=== PATIENT | male | born 1990 | race Caucasian/White ===

== ENCOUNTER 2016-07-14 14:14 | Emergency (ER) | payer MEDICAID, OTHER ==
[~2016-07-14] VITALS: Ht 170.2 cm; Wt 62.0 kg
[2016-07-14 14:17] VITALS: Ht 170.2 cm; Wt 62.0 kg
[2016-07-14] MEDS ORDERED: SODIUM CHLORIDE 0.9% 1L IRRIG IRR STA (14:52)
[2016-07-14] MEDS ORDERED: FLUORESCEIN STRIP LEFT EYE ONE (15:00)
[2016-07-14] MEDS ORDERED: TETRACAINE 0.5% 4 ML OPH LEFT EYE ONE (15:00)
[2016-07-14] MEDS ORDERED: IBUP-1542 PO (15:56)
[2016-07-14] MEDS ORDERED: CIPROFLOXACIN 0.3% 2.5 ML OPH LEFT EYE ONE (16:00)
--- NOTE | 2016-07-14 16:19 | ERD ---
ER Documentation Chief Complaint Date/Time DATE: 07/14/16 TIME: 16:16 Chief Complaint pt bib family with c/o left eye pain" something in it" working with wood HPI 26-year-old man complains of left eye irritation after suspected particular injury while cutting wood. He thinks a piece of water metal struck his left eye earlier in the day. He states similar episode occurred a few months ago to the left eye and he had to undergo ophthalmologic osman drill removal at a specialists office affiliated with [facility]. His tetanus immunization is up-to-date, denies fevers or chills, no chest pain or shortness of breath, denies injury or symptoms to the right eye. ROS All systems reviewed and are negative except as per history of present illness. Medications Home Meds Active Scripts Ibuprofen* (Motrin*) 600 Mg Tab, 600 MG PO Q8 for PAIN, #30 TAB Prov:MOIRA MAYFIELD MD 07/14/16 Allergies Allergies: Coded Allergies: No Known Allergy (Unverified , 07/14/16) PMhx/Soc None Medical and Surgical Hx: pt denies Medical Hx, pt denies Surgical Hx Hx Alcohol Use: No Hx Substance Use: No Hx Tobacco Use: No Smoking Status: Never smoker FmHx Family History: No diabetes Physical Exam Vitals Vital Signs Date Time Temp Pulse Resp B/P Pulse Ox O2 Delivery O2 Flow Rate FiO2 07/14/16 14:17 98.0 62 16 119/72 100 Physical Exam GENERAL: Well-developed, well-nourished, well-hydrated, in no apparent distress , looks nontoxic in appearance HEENT: Moist mucous membranes, pink conjunctiva, no cervical spine tenderness or step-off deformities, no goiter, no jaundice or icterus, extraocular movements intact without pain. No submandibular induration, and no pharyngeal erythema NEURO: Alert and oriented 3, cranial nerves II through XII intact bilaterally, pupils equal round reactive to light, no focal deficits or facial asymmetry, sensation intact distally Strength 5/5 in upper and lower extremities bilaterally CARDIAC: Regular rate and rhythm, no murmurs rubs or gallops LUNGS: Clear bilaterally no wheezing crackles or stridor ABDOMEN: Soft nontender, no guarding, no rigidity, no rebound, no psoas sign no obturator sign. Normoactive bowel sounds SKIN: Warm and dry to touch, no abrasions, contusions, or hematomas, no lacerations, no ecchymosis, no target lesions, and without ulcers EXTREMITIES: No clubbing cyanosis or edema, calves are bilaterally symmetrical, no Homans sign, no popliteal cord sign. Distal pulses equal and bilateral PSYCH: Normal affect without agitation or irritability Results 24 hrs Current Medications Medications (Trade) Dose Ordered Sig/Marvin Route PRN Reason Start Time Stop Time Status Last Admin Dose Admin Tetracaine HCl (Tetracaine 0.5% Steri-Unit Gini) 4 drop ONCE ONCE LEFT EYE 07/14/16 15:00 07/14/16 15:01 DC 07/14/16 15:14 Fluorescein Sodium ([id number]-[id number]) 2 strip ONCE ONCE LEFT EYE 07/14/16 15:00 07/14/16 15:01 DC Sodium Chloride (NS (Irrig)) 1,000 ml ONCE STAT IRR 07/14/16 14:52 07/14/16 14:53 DC 07/14/16 15:14 Ciprofloxacin HCl (Ciloxan 0.3% Oph) 2 drop ONCE ONCE LEFT EYE 07/14/16 16:00 07/14/16 16:01 DC 07/14/16 16:11 Procedures/MDM I was inspected by me there is a punctate foreign body at 10:00 medially near the pupil. I irrigation was performed with a Justice lens and 1 L normal saline. Tetracaine analgesic drops were applied and I attempted about 3-4 times to carefully remove this small foreign body located at about 10:00. A small portion was removed but is still larger piece remains deep within the cornea. Unfortunately I was unable to retrieve this piece but patient has experience with corneal foreign bodies and I recommended he follow-up with [facility] for ophthalmologic osman drill removal. Address and phone numbers were given to the patient and his girlfriend who was at the bedside. I also administered ciprofloxacin ophthalmic drops to the eye and gave him the bottle to use for the next week. Instructions on ciprofloxacin drops were provided to the patient. Patient feels much better at this time, and vital signs are normal, symptoms have improved. I did give strict instructions to return to the ED if symptoms continue or worsen, patient will otherwise follow-up with primary care physician. Patient understood instructions and agreed to plan. Departure Diagnosis: Primary Impression: Corneal foreign body with residual material Encounter type: initial encounter Laterality: left Qualified Code: T15.02XA - Corneal foreign body with residual material, left, initial encounter Condition: Good Referrals: [facility] [place] () Usted se lewis hecho un examen mdico de control que le indica que no est en silver condicin que requiera tratamiento urgente en el Departamento de Emergencia. Un estudio ms profundo y el tratamiento de rodriguez condicin pueden esperar sin ningn riesgo hasta que usted sea atendida/o en el consultorio de rodriguez mdico o silver cl andi. Es responsabilidad suya arreglar silver shai para el seguimiento del sixto. MANEJO DE CONDICIONES NO URGENTES EN EL FUTURO 1) Si usted tiene un mdico de atencin primaria: Usted debera llamar a rodriguez mdico de atencin primaria antes de venir al departamento de emergencia. Despus de las horas de consultorio, rodriguez doctor o rodriguez asociado/a est disponible por telfono. El mdico o enfermero de alexis en el servicio telefnico puede asesorarle por yuni medio para atender el problema, o sixto contrario se puede programar silver shai. 2) Si usted no tiene un mdico de atencin primaria: Llame al mdico o condado institucions de referencia que aparece abajo letha las horas de consultorio para hacer silver shai para que le vean. SI USTED NO PUEDE PAGAR PARA STEPHANIE UN MEDICO puede ir a: [facility] [address] [place] [address] [facility] [address] [place] [address] [facility] [address] [place] [address] [facility] [address] [place] [address] [facility] Hours: Mon - Fri 9:00 AM - 5:00 PM MOIRA MAYFIELD MD Jul 14, 2016 16:19
== END 2016-07-14 16:20 | disposition home or self-care (01) ==
LOC: FTE 14:14
DX: T15.02XA Foreign body in cornea, left eye, initial encounter (principal); X58.XXXA Exposure to other specified factors, initial encounter; Y92.9 Unspecified place or not applicable
CPT/HCPCS: A4217; Z7502; Z7610; 99284